=== PATIENT | male | born 1960 | race Caucasian/White ===

== ENCOUNTER 2024-03-10 08:47 | Outpatient (CLI) | payer OTHER, SELFPAY ==
--- NOTE | 2024-03-10 09:15 | CRLHL7_ITS ---
For Patients: As a result of the Century Cures Act, medical imaging exams and procedure reports are released immediately into your electronic medical record. You may view this report before your referring provider. If you have questions, please contact your health care provider. Indication: Neck pain Technique: Noncontrast MRI scan of the cervical spine. Comparison: Cervical spine radiograph 04/10/2013 Findings: General: Normal retropharyngeal soft tissues. Healed anterior spinal fusion with interbody fusion devices and anterior plate screw fixation extending from C5 to C7. Degenerative disc disease and facet arthrosis above the spinal fusion. Impingement of the cervical cord at C3-C4 and C4-C5. Increased cord signal on stir sequences at C3-C4 and C4-C5 consistent with myelopathy. Unremarkable cervicomedullary junction. No fracture or suspicious bone lesion. Disc levels: C2-C3: Unremarkable disc. Bilateral facet hypertrophy. No spinal stenosis. Moderate right foraminal stenosis. No left foraminal stenosis. C3-C4: Disc space height loss. Posterior broad-based disc osteophyte complex. Bilateral facet hypertrophy. Moderate/severe spinal stenosis with flattening of the cervical cord and increased cord signal consistent with myelopathy. Moderate bilateral neural foraminal stenosis. C4-C5: Disc space height loss. Posterior broad-based disc osteophyte complex and bilateral facet hypertrophy. Severe spinal stenosis with flattening of the cervical cord and increased cord signal consistent with myelopathy. C5-C6: Fused disc space. Unremarkable facet joints. No spinal or foraminal stenosis. C6-C7: Fused disc space. Unremarkable facet joints. No spinal or foraminal stenosis. C7-T1: Trace anterolisthesis of C7. Otherwise unremarkable disc. Mild facet arthrosis. No spinal stenosis or foraminal stenosis. Impression: 1. Healed anterior spinal fusion from C5-C7. 2. Degenerative disc disease and facet arthrosis at C3-C4 and C4-C5 with severe spinal stenosis, cord impingement and myelopathy at both levels. Dictated by David Buckley MD @ 03/13/2024 2:06:21 PM (Electronically Signed)
== END 2024-03-10 08:48 | disposition home or self-care (01) ==
LOC: MRI 08:49
PROVIDERS: PCP Family Medicine; Visit Provider Family Medicine
DX: M54.2 Cervicalgia (principal); M50.31 Other cervical disc degeneration, high cervical region; M50.321 Other cervical disc degeneration at C4-C5 level; R20.2 Paresthesia of skin
CPT/HCPCS: 72141